=== PATIENT | female | born 1970 | race African-American/Black ===

== ENCOUNTER 2019-07-18 14:41 | Emergency (ER) | payer OTHER ==
[~2019-07-18] VITALS: Ht 167.6 cm; Wt 63.6 kg
[~2019-07-18 14:41] MED LIST: NOCURR
[2019-07-18] MEDS ORDERED: IBUPROFEN 600 MG TABLET PO ONE (17:15)
[2019-07-18] MEDS ORDERED: METHOCARBAMOL 500 MG TABLET PO ONE (17:15)
[2019-07-18 20:25] VITALS: BP 126/77
== END 2019-07-18 20:56 | disposition home or self-care (01) ==
LOC: EMS 14:41
DX: R07.89 Other chest pain (principal); M54.9 Dorsalgia, unspecified; R03.0 Elevated blood-pressure reading, without diagnosis of hypertension; F17.210 Nicotine dependence, cigarettes, uncomplicated; Z88.1 Allergy status to other antibiotic agents
CPT/HCPCS: 93005